=== PATIENT | male | born 1965 | race African-American/Black ===

== ENCOUNTER 2020-04-18 19:15 | Emergency (ER) | payer SELFPAY ==
[~2020-04-18] VITALS: Ht 177.8 cm; Wt 75.0 kg
--- NOTE | 2020-04-18 19:27 | ED.ADGEN ---
General Adult HPI: HPI: Patient is a 55 year old male brought in by EMS. They state he was walking along [address] and walked into a business, acting abnormal. He told EMS he has been drinking and took extra of his oxycodone and Seroquel, he told them he drinks daily to get drunk denies any self-harm to them. On arrival patient is intoxicated, states he drank 1025 ounce beers and that he is a "bad drinker" he was initially denying any intention of self-harm but then stated that he wants to . Review of Systems: Review of Systems: Constitutional: Denies fever or chills. [] Toxic aided Eyes: Denies change in visual acuity. [] HENT: Denies nasal congestion or sore throat. [] Respiratory: Denies cough or shortness of breath. [] Cardiovascular: Denies chest pain or edema. [] GI: Denies abdominal pain, nausea, vomiting, bloody stools or diarrhea. [] : Denies dysuria. [] Musculoskeletal: Denies back pain or joint pain. [] Integument: Denies rash. [] Neurologic: Denies headache, focal weakness or sensory changes. [] Endocrine: Denies polyuria or polydipsia. [] Lymphatic: Denies swollen glands. [] Psychiatric: Denies depression or anxiety. [] Denies self-harm Current Medications: Current Medications Medications (Trade) Dose Ordered Sig/Stas Start Time Stop Time Status Last Admin Dose Admin Diphenhydramine HCl (Benadryl) 25 mg 1X ONCE 04/18/20 21:00 04/18/20 21:01 DC 04/18/20 20:46 25 MG Midazolam HCl (Versed) 2 mg STK-MED ONCE 04/18/20 21:08 04/18/20 21:08 DC Olanzapine (ZyPREXA IM) 10 mg 1X ONCE 04/18/20 21:00 04/18/20 21:01 DC 04/18/20 20:47 10 MG Sodium Chloride 1,000 ml @ 1,000 mls/hr 1X ONCE 04/18/20 22:00 04/18/20 22:59 DC 04/18/20 21:57 1,000 MLS/HR Allergies: Allergies: Allergies Coded Allergies Type Severity Reaction Last Updated Verified Penicillins Allergy Intermediate 04/18/20 Yes aspirin Allergy Intermediate 04/18/20 Yes haloperidol Allergy Intermediate 04/18/20 Yes lorazepam Allergy Intermediate 04/18/20 Yes Physical Exam: PE: Constitutional: Well developed, well nourished, no acute distress, non-toxic appearance. [] HENT: Normocephalic, atraumatic, bilateral external ears normal, oropharynx moist, no oral exudates, nose normal. [] Eyes: PERRLA, EOMI, conjunctiva normal, no discharge. [] Neck: Normal range of motion, no tenderness, supple, no stridor. [] Cardiovascular:Heart rate regular rhythm, no murmur [] Lungs & Thorax: Bilateral breath sounds clear to auscultation [] Abdomen: Bowel sounds normal, soft, no tenderness, no masses, no pulsatile masses. [] Skin: Warm, dry, no erythema, no rash. [] Back: No tenderness, no CVA tenderness. [] Extremities: No tenderness, no cyanosis, no clubbing, ROM intact, no edema. [] Neurologic: Alert and oriented X 3, normal motor function, normal sensory function, no focal deficits noted. [] Psychologic: Affect normal, judgement normal, mood normal. [] Tox gated Current Patient Data: Labs: Laboratory Tests Test 04/18/20 19:50 04/18/20 19:55 Urine Collection Type Unknown Urine Color Yellow Urine Clarity Cloudy Urine pH 5.0 (<5.0-8.0) Urine Specific [place] <=1.005 (1.000-1.030) Urine Protein Negative mg/dL (NEG-TRACE) Urine Glucose (UA) Negative mg/dL (NEG) Urine Ketones (Stick) Negative mg/dL (NEG) Urine Blood Negative (NEG) Urine Nitrite Negative (NEG) Urine Bilirubin Negative (NEG) Urine Urobilinogen Dipstick 0.2 mg/dL (0.2 mg/dL) Urine Leukocyte Esterase Negative (NEG) Urine RBC 0 /HPF (0-2) Urine WBC 0 /HPF (0-4) Urine Bacteria 0 /HPF (0-FEW) Urine Opiates Screen Neg (NEG) Urine Methadone Screen Neg (NEG) Urine Barbiturates Neg (NEG) Urine Phencyclidine Screen Pos (NEG) Urine Amphetamine/Methamphetamine Neg (NEG) Urine Benzodiazepines Screen Neg (NEG) Urine Cocaine Screen Neg (NEG) Urine Cannabinoids Screen Pos (NEG) Urine Ethyl Alcohol Pos (NEG) White Blood Count 6.6 x10^3/uL (4.0-11.0) Red Blood Count 4.44 x10^6/uL (4.30-5.70) Hemoglobin 14.2 g/dL (13.0-17.5) Hematocrit 41.8 % (39.0-53.0) Mean Corpuscular Volume 94 fL (79-100) Mean Corpuscular Hemoglobin 32 pg (25-35) Mean Corpuscular Hemoglobin Concent 34 g/dL (31-37) Red Cell Distribution Width 14.5 % (11.5-14.5) Platelet Count 190 x10^3/uL (140-400) Neutrophils (%) (Auto) 49 % (31-73) Lymphocytes (%) (Auto) 44 % (24-48) Monocytes (%) (Auto) 5 % (0-9) Eosinophils (%) (Auto) 1 % (0-3) Basophils (%) (Auto) 1 % (0-3) Neutrophils # (Auto) 3.2 x10^3/uL (1.8-7.7) Lymphocytes # (Auto) 2.9 x10^3/uL (1.0-4.8) Monocytes # (Auto) 0.3 x10^3/uL (0.0-1.1) Eosinophils # (Auto) 0.1 x10^3/uL (0.0-0.7) Basophils # (Auto) 0.0 x10^3/uL (0.0-0.2) Sodium Level 148 mmol/L (136-145) H Potassium Level 3.8 mmol/L (3.5-5.1) Chloride Level 111 mmol/L (98-107) H Carbon Dioxide Level 29 mmol/L (21-32) Anion Gap 8 (6-14) Blood Urea Nitrogen 6 mg/dL (8-26) L Creatinine 1.1 mg/dL (0.7-1.3) Estimated GFR (Cockcroft-Gault) 84.1 BUN/Creatinine Ratio 5 (6-20) L Glucose Level 86 mg/dL (70-99) Lactic Acid Level 1.5 mmol/L (0.4-2.0) Calcium Level 8.5 mg/dL (8.5-10.1) Magnesium Level 2.3 mg/dL (1.8-2.4) Total Bilirubin 0.2 mg/dL (0.2-1.0) Aspartate Amino Transferase (AST) 44 U/L (15-37) H Alanine Aminotransferase (ALT) 42 U/L (16-63) Alkaline Phosphatase 38 U/L (46-116) L Ammonia 16 mcmol/L (11-34) Troponin I Quantitative < 0.017 ng/mL (0.000-0.055) Total Protein 6.7 g/dL (6.4-8.2) Albumin 3.8 g/dL (3.4-5.0) Albumin/Globulin Ratio 1.3 (1.0-1.7) Lipase 297 U/L (73-393) Salicylates Level 3.7 mg/dL (2.8-20.0) Salicylate Last Dose Date Salicylate Last Dose Time Acetaminophen Level < 2 mcg/ml (10-30) L Acetaminophen Last Dose Date Acetaminophen Last Dose Time Ethyl Alcohol Level 373 mg/dL (0-10) H Laboratory Tests 04/18/20 19:55 Laboratory Tests 04/18/20 19:55 Vital Signs: Vital Signs Date Time Temp Pulse Resp B/P (MAP) Pulse Ox O2 Delivery O2 Flow Rate FiO2 04/19/20 05:16 66 16 121/79 (93) 99 Room Air 04/19/20 01:15 1.5 04/18/20 19:30 98.1 98.1 EKG: EKG: Normal sinus rhythm, heart rate 61, no ST elevation or depression, no ectopy, normal intervals. [] Heart Score: Risk Factors: Risk Factors: DM, Current or recent (<one month) smoker, HTN, HLP, family history of CAD, obesity. Risk Scores: Score 0 - 3: 2.5% MACE over next 6 weeks - Discharge Home Score 4 - 6: 20.3% MACE over next 6 weeks - Admit for Clinical Observation Score 7 - 10: 72.7% MACE over next 6 weeks - Early Invasive Strategies Radiology/Procedures: Radiology/Procedures: [] Course & Med Decision Making: Course & Med Decision Making Patient became increasingly agitated and hostile towards staff. Yelling of obscenities in ED. required chemical and physical restraints. Restraints removed when chemical sedation took effect. Patient woke up, alert and oriented, denies SI. Wants to leave AMA. Form signed. [] Dragon Disclaimer: Dragon Disclaimer: This electronic medical record was generated, in whole or in part, using a voice recognition dictation system. Departure Departure Impression: Primary Impression: Drug intoxication with delirium Additional Impression: AA (alcohol abuse) Disposition: 07 AMA/ELOPED/LWBS Condition: STABLE Patient Instructions: Alcohol Intoxication, [id number] Problem Qualifiers YOSHI TREVIÑO MD Apr 18, 2020 19:27
[2020-04-18 19:59] LABS: BILIRUBIN,URINE NEGATIVE (NEG); CLARITY,URINE CLOUDY; COLOR,URINE YELLOW; NITRITE,URINE NEGATIVE (NEG); PROTEIN,URINE NEGATIVE (NEG-TRACE); UROBILINOGEN,URINE 0.2 mg/dL (0.2 mg/dL)
[2020-04-18 20:06] LABS: BARBITURATES NEG (NEG); BENZODIAZEPINES NEG (NEG); CANNABINOIDS POS (NEG); COCAINE NEG (NEG); METHADONE NEG (NEG); OPIATES NEG (NEG); PHENCYCLIDINE POS (NEG)
[2020-04-18 20:07] LABS: AMPHETAMINE/METHAMPHETAMINE NEG (NEG)
[2020-04-18 20:08] LABS: BACTERIA,URINE 0 /HPF (0-FEW); RBC,URINE 0 /HPF (0-2); WBC,URINE 0 /HPF (0-4)
[2020-04-18 20:25] LABS: BASO % 1 % (0-3); EOS # 0.1 x10^3/uL (0.0-0.7); EOS % 1 % (0-3); HEMATOCRIT 41.8 % (39.0-53.0); HEMOGLOBIN 14.2 g/dL (13.0-17.5); LYMPH # 2.9 x10^3/uL (1.0-4.8); LYMPH % 44 % (24-48); MEAN CORPUSCULAR HEMOGLOBIN 32 pg (25-35); MEAN CORPUSCULAR HGB CONC 34 g/dL (31-37); MEAN CORPUSCULAR VOLUME 94 fL (79-100); MONO # 0.3 x10^3/uL (0.0-1.1); MONO % 5 % (0-9); NEUT # 3.2 x10^3/uL (1.8-7.7); NEUT % 49 % (31-73); PLATELET COUNT 190 x10^3/uL (140-400); RED BLOOD COUNT 4.44 x10^6/uL (4.30-5.70); RED CELL DISTRIBUTION WIDTH 14.5 % (11.5-14.5); WHITE BLOOD COUNT 6.6 x10^3/uL (4.0-11.0)
[2020-04-18] MEDS ORDERED: diphenhydrAMINE 50 MG/ML VIAL IVP ONE ×2 (20:45→21:00)
[2020-04-18 20:46] LABS: CALCIUM 8.5 mg/dL (8.5-10.1); CREATININE 1.1 mg/dL (0.7-1.3); GFR 84.1; POTASSIUM 3.8 mmol/L (3.5-5.1)
[2020-04-18 20:51] LABS: ACETAMIN < 2 mcg/ml (10-30); SALIC 3.7 mg/dL (2.8-20.0)
[2020-04-18 20:52] LABS: ALBUMIN 3.8 g/dL (3.4-5.0); ALBUMIN/GLOBULIN RATIO 1.3 (1.0-1.7); MAGNESIUM 2.3 mg/dL (1.8-2.4); TOTAL BILIRUBIN 0.2 mg/dL (0.2-1.0); TOTAL PROTEIN 6.7 g/dL (6.4-8.2)
[2020-04-18] MEDS ORDERED: OLANZapine IM 10 MG VIAL. IM ONE (21:00)
[2020-04-18] MEDS ORDERED: MIDAZOLAM HCL/PF 2 MG/2 ML VIAL. ONE (21:08)
[2020-04-18] MEDS ORDERED: MIDAZOLAM HCL/PF 5 MG/5 ML VIAL. NS ONE (21:30)
[2020-04-18] MEDS ORDERED: IV NORMAL SALINE 1000ML BAG 1,000 ML IV ONE (22:00)
--- NOTE | 2020-04-19 03:35 | EKG ---
[facility] [address] [place] [address] Test Date: 2020-04-18 Test Time: 20:08:05 Pat Name: JENNIFER FRANCIS Department: Room: Gender: M [employer]: : 1965 Requested By: YOSHI TREVIÑO Order Number: [id number] [place] MD: Measurements Intervals [place] Rate: 61 P: 40 TN: 196 QRS: 54 QRSD: 80 T: 42 QT: 372 QTc: 376 Interpretive Statements SINUS RHYTHM NORMAL ECG RI6.02 No previous ECG available for comparison
[2020-04-19 05:16] VITALS: BP 121/79
== END 2020-04-19 06:09 | disposition left against medical advice (07) ==
LOC: ER 19:15
DX: F10.121 Alcohol abuse with intoxication delirium (principal); Z88.0 Allergy status to penicillin; Z88.6 Allergy status to analgesic agent; Z88.8 Allergy status to other drugs, medicaments and biological substances; Y90.8 Blood alcohol level of 240 mg/100 ml or more
CPT/HCPCS: 36415; 80053; 80307; 80329; 81001; 82140; 83605; 83690; 83735; 84484; 85025; 93005; 96361; 96372; 96374; 99285; G0480; J1200; J2250; J3490; J7030